=== PATIENT | female | born 1995 | race Caucasian/White ===

== ENCOUNTER 2017-01-01 20:13 | Emergency (ER) | payer OTHER ==
--- NOTE | 2017-01-01 20:51 | ER Document Report ---
ED Medical Screen (RME) - General Stated Complaint: SORE THROAT,EAR PAIN,VOMITING Notes: 21 year old, , 29 weeks gestation. Sick for about 1 week. Started with sore throat, now ears plugged, vomited a couple of times after eating. [place] some baby movement today, seems less. Denies abdominal pain. Denies vaginal bleeding. Physical Exam - General General appearance: Appears well In distress: None - Abdominal Inspection: Gravid female Tenderness: Nontender
--- NOTE | 2017-01-01 22:00 | ER Document Report ---
HPI - HPI Patient complains to provider of: sore throat, sinus congestion Past Medical History - General Information source: Patient - Social History Smoking Status: Never Smoker Frequency of alcohol use: None Drug Abuse: None Lives with: Family Family History: Reviewed & Not Pertinent - Medical History Medical History: Negative Surgical Hx: Negative - Immunizations Immunizations up to date: Yes Hx Diphtheria, Pertussis, Tetanus Vaccination: Yes Vertical Provider Document - CONSTITUTIONAL General Appearance: WD/WN, No Apparent Distress - HEENT HEENT: Atraumatic, Normocephalic. negative: Normal ENT Exam - Sinus congestion and tenderness which is mild in both the frontal and maxillary sinuses, nasal congestion with swollen turbinates but no other abnormality, post nasal drip, pharynx otherwise unremarkable - NECK Neck: Normal Inspection - RESPIRATORY Respiratory: Breath Sounds Normal, No Respiratory Distress - CARDIOVASCULAR Cardiovascular: Regular Rate, Regular Rhythm Course - Re-evaluation Re-evalutation: Chronic bedside ultrasound performed, movement noted, cardiac activity noted at a rate of about 140. Soft and benign abdomen, unremarkable flank exam, patient smiling, alert, well appearing, somewhat congested and sounds hoarse. Postnasal drainage noted, sinus tenderness noted, clear lungs, no tachycardia. After discussion patient will be treated with symptom management and treatment for sinusitis. Low suspicion of any other concerning abnormalities, patient states that she has not vomited in a while and when she did she vomited some mucus. Discussed follow-up, discussed return precautions, patient states understanding and agreement. Discharge - Discharge Clinical Impression: Sinus congestion, Laryngitis Pharyngitis Qualifiers: Pharyngitis/tonsillitis etiology: unspecified etiology Qualified Code(s): J02.9 - Acute pharyngitis, unspecified Condition: Stable Disposition: HOME, SELF-CARE Additional Instructions: Examination shows inflamed pharynx (throat), sinus congestion with postnasal drainage, and slightly tender lymph nodes in your neck. He also had laryngitis (vocal chord inflammation). Use the Flonase as prescribed, take the Benadryl especially at night to help with congestion/postnasal drip. Take the antibiotic as prescribed, recommend waiting 2 days and if symptoms persist you begin this. Take Tylenol for pain. Follow-up with primary care. Return to emergency department for any concerning symptoms. Prescriptions: Amoxicillin Trihydrate [Amoxil 500 mg Capsule] 500 mg PO TID #30 cap Diphenhydramine HCl [Benadryl] 25 mg PO Q6 PRN #20 capsule PRN Reason: Fluticasone Propionate [Flonase Nasal [place] 50 Mcg/Hyampom 16 gm] 1 spray NASL Q12 #1 inhaler
[2017-01-02 05:21] VITALS: BP 112/69
== END 2017-01-01 22:00 | disposition home or self-care (01) ==
LOC: ER 20:13
DX: O26.93 Pregnancy related conditions, unspecified, third trimester (principal); J04.0 Acute laryngitis; J02.9 Acute pharyngitis, unspecified; Z3A.29 29 weeks gestation of pregnancy
CPT/HCPCS: 99282

== ENCOUNTER 2017-02-27 10:40 | Outpatient (CLI) | payer OTHER ==
[2017-02-27 11:20] LABS: APPEARANCE,URINE SLIGHTLY-CLOUDY; BILIRUBIN,URINE NEGATIVE (NEGATIVE); GLUCOSE, URINE NEGATIVE (NEGATIVE); KETONES,URINE NEGATIVE (NEGATIVE); LEUKOCYTE ESTERASE,URINE NEGATIVE (NEGATIVE); NITRITE,URINE NEGATIVE (NEGATIVE); PROTEIN,URINE NEGATIVE (NEGATIVE); URINE SPECIFIC GRAVITY 1.014; UROBILINOGEN,URINE NEGATIVE mg/dL (<2.0)
[2017-02-27 11:45] LABS: URINE BARBITURATES SCREEN NEGATIVE; URINE METHADONE SCREEN NEGATIVE; URINE OPIATES LOW NEGATIVE; URINE PHENCYCLIDINE SCREEN NEGATIVE
== END 2017-02-27 12:26 | disposition home or self-care (01) ==
LOC: LC 10:40
PROVIDERS: ATTEND Specialist
PROC: 4A1HXCZ Monitoring of Products of Conception, Cardiac Rate, External Approach (ICD-10-PCS; principal; 2017-02-27)
DX: O47.1 False labor at or after 37 completed weeks of gestation (principal); Z3A.37 37 weeks gestation of pregnancy
CPT/HCPCS: 59025; 80307; 81005

== ENCOUNTER 2017-03-04 16:12 | Inpatient (IN) | payer OTHER ==
--- NOTE | 2017-03-04 16:26 | Non Stress Test Report ---
Non Stress Test Datetime Report Generated by CPN: 03/04/2017 16:26 DEMOGRAPHIC EGA NST: 37.1 INDICATION Indication for Study: Other Indication for Study (NST) Other: Labor Check MONITORING Monitor Explained: Monitor Explained; Test Explained; Patient Verbalized Understanding Time on Monitor: 02/27/2017 10:55 Time off Monitor: 02/27/2017 12:12 NST Duration: 77 NST INTERVENTIONS NST Interventions: PO Hydration; Reposition Patient Physician Notified NST: Dr. Neilsen BABY A: [id number] BABY A Movement : Present Contraction Frequency : 2-4 FHR Baseline : 130 Accelerations : 15X15 Decelerations : None Variability : Moderate 6-25bpm NST Review: Meets Criteria for Reactive NST NST Review and Verified By : Cintia ESTEVEZT Results: Reactive NST REPORT Report Trigger: Send Report
[2017-03-04 16:59] LABS: APPEARANCE,URINE CLEAR; BILIRUBIN,URINE NEGATIVE (NEGATIVE); GLUCOSE, URINE NEGATIVE (NEGATIVE); KETONES,URINE NEGATIVE (NEGATIVE); LEUKOCYTE ESTERASE,URINE NEGATIVE (NEGATIVE); NITRITE,URINE NEGATIVE (NEGATIVE); PROTEIN,URINE NEGATIVE (NEGATIVE); URINE SPECIFIC GRAVITY 1.005; UROBILINOGEN,URINE NEGATIVE mg/dL (<2.0)
[2017-03-04 17:03] LABS: AMNISURE (ROM) POSITIVE (NEGATIVE)
[2017-03-04 17:15] LABS: URINE BARBITURATES SCREEN NEGATIVE; URINE METHADONE SCREEN NEGATIVE; URINE OPIATES LOW NEGATIVE; URINE PHENCYCLIDINE SCREEN NEGATIVE
[2017-03-04] MEDS ORDERED: RINGERS SOLUTION,LACTATED 1,000 ML IV PRN (17:21)
[2017-03-04] MEDS ORDERED: RINGERS SOLUTION,LACTATED 1,000 ML IV ONE (17:21)
[2017-03-04] MEDS ORDERED: MISOPROSTOL 0.2 MG TABLET ONE (17:37)
[2017-03-04] MEDS ORDERED: LIDOCAINE 1% INJ-PF (10 MG/ML) 30 ML SDV ONE (17:38)
[2017-03-04] MEDS ORDERED: OXYTOCIN/NORMAL SALINE 20 UNIT/1,000 ML RTUINJ ONE (17:38)
[2017-03-04 17:57] LABS: ABSOLUTE LYMPHOCYTES (AUTO) 2.2 10^3/uL (0.5-4.7); ABSOLUTE MONOCYTES (AUTO) 0.8 10^3/uL (0.1-1.4); ABSOLUTE NEUT (AUTO) 4.4 10^3/uL (1.7-8.2); BASOPHILS % (AUTO) 0.1 % (0-2); EOSINOPHILS % (AUTO) 0.4 % (0-6); HEMATOCRIT 33.1 % (36.0-47.0); HEMOGLOBIN 11.1 g/dL (12.0-15.5); HGB HCT DIFFERENCE 0.2; LYMPHOCYTES % (AUTO) 29.9 % (13-45); MEAN CORPUSCULAR HEMOGLOBIN 29.5 pg (27.0-33.4); MEAN CORPUSCULAR HGB CONC 33.5 g/dL (32.0-36.0); MEAN CORPUSCULAR VOLUME 88 fl (80-97); MONOCYTES % (AUTO) 11.2 % (3-13); RED BLOOD COUNT 3.76 10^6/uL (3.72-5.28); RED CELL DISTRIBUTION WIDTH 14.3 % (11.5-14.0); SEGMENTED NEUTROPHILS % (AUTO) 58.4 % (42-78); WHITE BLOOD COUNT 7.5 10^3/uL (4.0-10.5)
[2017-03-04] MEDS ORDERED: DIPH/PERTUSS(ACELL)/TETANUS VAC/PF 0.5 ML SYR (>=10YO) IM PRN (18:15)
[2017-03-04] MEDS ORDERED: PROMETHAZINE HCL 25 MG SUPP.RECT PR PRN (18:15)
[2017-03-04] MEDS ORDERED: DIPHENHYDRAMINE HCL 25 MG CAPSULE PO PRN (18:15)
[2017-03-04] MEDS ORDERED: GLYCERIN/WITCH HAZEL LEAF 1 EACH MED..PAD TP PRN (18:15)
[2017-03-04] MEDS ORDERED: PROMETHAZINE HCL INJ 25 MG/1 ML VIAL IV PRN (18:15)
[2017-03-04] MEDS ORDERED: NA PHOS,M-B/NA PHOS,DI-BA (ADULT) 133 ML ENEMA PR PRN (18:15)
[2017-03-04] MEDS ORDERED: PROMETHAZINE HCL 25 MG TABLET PO PRN (18:15)
[2017-03-04] MEDS ORDERED: ACETAMINOPHEN 650 MG SUPP.RECT PR PRN (18:15)
[2017-03-04] MEDS ORDERED: PSEUDOEPHEDRINE HCL 30 MG TABLET PO PRN (18:15)
[2017-03-04] MEDS ORDERED: MAGNESIUM HYDROXIDE SUSP 30 ML UDCUP PO PRN (18:15)
[2017-03-04] MEDS ORDERED: BENZOCAINE/MENTHOL AEROSOL SPRAY 56 ML TOP PRN (18:15)
[2017-03-04] MEDS ORDERED: DIBUCAINE 1% OINTMENT 28 GM TP PRN (18:15)
[2017-03-04] MEDS ORDERED: MEASLES,MUMPS&RUBELLA VACC/PF 0.5 ML VIAL SUBCUT PRN (18:15)
[2017-03-04] MEDS ORDERED: ZOLPIDEM TARTRATE 5 MG TABLET PO PRN (18:15)
[2017-03-04] MEDS ORDERED: OXYTOCIN/NORMAL SALINE 1,000 ML IV PRN (18:15)
[2017-03-04] MEDS ORDERED: IBUPROFEN 800 MG TABLET ONE (18:34)
--- NOTE | 2017-03-04 20:12 | Admission Physical ---
Datetime Report Generated by CPN: 03/04/2017 20:12 CURRENT ADMISSION Chief Complaint: Uterine Contractions; Suspected Ruptured Membranes Admit Plan: Admit to Unit; Initiate Labor Protocol ALLERGIES Medication Allergies: Yes Medication Allergies: Sulfa (Sulfonamide Antibiotics) (03/04/2017) Medication Allergies: Sulfa (Sulfonamide Antibiotics) (02/27/2017) Latex: No Latex Allergies Food Allergies: none Environmental Allergies: none OBSTETRICAL HISTORY EDC: 03/19/2017 00:00 : 3 Para: 1 Term: 1 : 0 SAB: 1 IAB: 0 Ectopic: 0 Livin Cesareans: 0 VBACs: 0 Multiple Births: 0 Gestational Diabetes: No Rh Sensitization: No Incompetent Cervix: No JOHN: No Infertility: No ART Treatment: No Uterine Anomaly: No IUGR: No Hx Previous C/S: No Macrosomia: No Hx Loss/Stillborn: No PIH: No Hx : No Placenta Previa/Abruption: No Depression/PP Depression: No PTL/PROM: No Post Hemorrhage: No Current Procedures: Ultrasound Obstetrical History Comments: 2014 G2- current SEE RECORDS Alcohol: No Marijuana : No Cocaine: No Other Illicit Drugs: No Cigarettes: Never Smoker. [id number] MEDICAL HISTORY Diabetes: No Blood Transfusion: No Pulmonary Disease (Asthma, TB): No Breast Disease: No Hypertension: No Co Chairman Surgery: No Heart Disease: No Hosp/Surgery: Yes Autoimmune Disorder: No Anesthetic Complications: No Kidney Disease: No Abnormal Pap Smear: No Neuro/Epilepsy: No Psychiatric Disorders: No Other Medical Diseases: Yes Hepatitis/Liver Disease: No Significant Family History: No Varicosities/Phlebitis: No Trauma/Violence : No Thyroid Dysfunction: No Medical History Comments: CHILDBIRTH Scoliosis Surgery 2008- rods in back INFECTIOUS HISTORY Gonorrhea: No Genital Herpes: No Chlamydia: No Tuberculosis: No Syphilis: No Hepatitis: No HIV/AIDS Exposure: No Rash or Viral Illness: No HPV: No PHYSICAL EXAM General: Normal HEENT: Normal Neurologic: Normal Thyroid: Normal Heart: Normal Lungs: Normal Breast: Normal Back: Normal Abdomen: Normal Genitourinary Exam: Normal Extremities: Normal DTRs: Normal Pelvic Type: Adequate Vital Signs: Reviewed MEMBRANES Membranes: Ruptured Amniotic Fluid Color: Clear FETUS A EGA: 37.6 Monitoring: External US FHR- Baseline: 120 Variability: Moderate 6-25bpm Accelerations: 15X15 Decelerations: None FHR Category: Category I Presentation: Vertex Admit Comment: 21 yo presented in active labor EDC 03/19/17 EGA 37.6 NKDA unremarkable care history of back surgery with rods amnisure pos cervical exam term SROM admit pain management prn anticipate poc reviewed with pt and spouse PLANS FOR LABOR AND DELIVERY Labor and Delivery: None Pain Management: None Feeding Preference: Formula Benefit of Breast Feed Discussed: Yes Circumcision: No INFORMED CONSENT Informed Consent Obtained: Vaginal Delivery; Risks, Benefits and Alternatives Discussed Assignment: Becky Gar MD Signature: with User ID: [email or web address] Signature: with User ID: Sandra : with User ID: Sandra : with User ID: [email or web address]
[2017-03-04] MEDS: IBUPROFEN 800 MG TABLET PO SCH (21:10)
[2017-03-04] MEDS: FAMOTIDINE 20 MG TABLET PO SCH (21:19)
[2017-03-05] MEDS: IBUPROFEN 800 MG TABLET PO SCH ×3 (05:55→21:20)
[2017-03-05 07:45] LABS: HEMATOCRIT 31.4 % (36.0-47.0); HEMOGLOBIN 10.4 g/dL (12.0-15.5); HGB HCT DIFFERENCE -0.2; MEAN CORPUSCULAR HEMOGLOBIN 29.3 pg (27.0-33.4); MEAN CORPUSCULAR HGB CONC 33.2 g/dL (32.0-36.0); MEAN CORPUSCULAR VOLUME 88 fl (80-97); RED BLOOD COUNT 3.56 10^6/uL (3.72-5.28); RED CELL DISTRIBUTION WIDTH 14.5 % (11.5-14.0); WHITE BLOOD COUNT 9.2 10^3/uL (4.0-10.5)
--- NOTE | 2017-03-05 08:31 | PDOC PROGRESS REPORT ---
Subjective-OB Subjective: Post Delivery Day: 21 year old. Denies any needs at this time Physical Exam (OB) Vital Signs: Temp Pulse Resp BP Pulse Ox 97.7 F 77 17 103/68 99 03/05/17 07:36 03/05/17 07:36 03/05/17 07:36 03/05/17 07:36 03/05/17 07:36 Intake & Output 03/04/17 03/05/17 03/06/17 06:59 06:59 06:59 Intake Total 750 Balance 750 Weight 73.63 kg - Lochia Lochia Amount: Small 10-25 ml Lochia Color: Rubra/Red - Abdomen Description: Tender, Soft Hernia Present: No Bowel Sounds: Normoactive Flatus Presence: Present Stool: No Fundal Description: Firm, Midline Fundal Height: u/u - u/2 Objective-Diagnostic Laboratory: 03/05/17 07:24 03/04/17 03/04/17 03/04/17 16:23 17:35 17:35 WBC 7.5 RBC 3.76 Hgb 11.1 L Hct 33.1 L MCV 88 MCH 29.5 MCHC 33.5 RDW 14.3 H Plt Count 208 Seg Neutrophils % 58.4 Lymphocytes % 29.9 Monocytes % 11.2 Eosinophils % 0.4 Basophils % 0.1 Absolute Neutrophils 4.4 Absolute Lymphocytes 2.2 Absolute Monocytes 0.8 Absolute Eosinophils 0.0 Absolute Basophils 0.0 Urine Color STRAW Urine Appearance CLEAR Urine pH 8.0 Ur Specific [place] 1.005 Urine Protein NEGATIVE Urine Glucose (UA) NEGATIVE Urine Ketones NEGATIVE Urine Blood NEGATIVE Urine Nitrite NEGATIVE Ur Leukocyte Esterase NEGATIVE Blood Type O POSITIVE Antibody Screen NEGATIVE 03/05/17 07:24 WBC 9.2 RBC 3.56 L Hgb 10.4 L Hct 31.4 L MCV 88 MCH 29.3 MCHC 33.2 RDW 14.5 H Plt Count 201 Seg Neutrophils % Lymphocytes % Monocytes % Eosinophils % Basophils % Absolute Neutrophils Absolute Lymphocytes Absolute Monocytes Absolute Eosinophils Absolute Basophils Urine Color Urine Appearance Urine pH Ur Specific [place] Urine Protein Urine Glucose (UA) Urine Ketones Urine Blood Urine Nitrite Ur Leukocyte Esterase Blood Type Antibody Screen
[2017-03-05] MEDS: FERROUS SULFATE 325 MG TABLET PO SCH ×2 (09:41→17:49)
[2017-03-05] MEDS: FAMOTIDINE 20 MG TABLET PO SCH ×2 (09:42→21:20)
[2017-03-05] MEDS: SENNOSIDES/DOCUSATE 8.6-50 MG 1 EACH TABLET PO SCH (09:42)
[2017-03-05] MEDS: DOCUSATE SODIUM 100 MG CAPSULE PO SCH ×2 (09:42→17:50)
[2017-03-05] MEDS ORDERED: [UNRECOGNIZED DRUG - OTHER] PO SCH (10:00)
[2017-03-05] MEDS ORDERED: DHA PO SCH (10:00)
[2017-03-05] MEDS ORDERED: OMEGA3 PO SCH (10:00)
[2017-03-05] MEDS ORDERED: FISH OIL PO SCH (10:00)
[2017-03-05] MEDS ORDERED: PRENATAL VITAMIN W-O CA NO5/FE FUMARATE/FA CAPSULE PO SCH (10:00)
[2017-03-06] MEDS: IBUPROFEN 800 MG TABLET PO SCH (05:56)
[2017-03-06 08:24] VITALS: BP 104/56
[2017-03-06] MEDS: FAMOTIDINE 20 MG TABLET PO SCH (09:16)
[2017-03-06] MEDS: DOCUSATE SODIUM 100 MG CAPSULE PO SCH (09:16)
[2017-03-06] MEDS: FERROUS SULFATE 325 MG TABLET PO SCH (09:16)
[2017-03-06] MEDS: SENNOSIDES/DOCUSATE 8.6-50 MG 1 EACH TABLET PO SCH (09:16)
--- NOTE | 2017-03-06 09:26 | PDOC PROGRESS REPORT ---
Subjective-OB Subjective: Post Delivery Day: 21 year old. Denies any needs at this time. Ready to go home. Physical Exam (OB) Vital Signs: Temp Pulse Resp BP Pulse Ox 97.7 F 76 17 104/56 L 99 03/06/17 08:00 03/06/17 08:00 03/06/17 08:00 03/06/17 08:00 03/06/17 08:00 Intake & Output 03/05/17 03/06/17 03/07/17 06:59 06:59 06:59 Intake Total 750 480 Balance 750 480 Weight 73.63 kg - Lochia Lochia Amount: Scant < 10 ml Lochia Color: Rubra/Red - Abdomen Description: Tender, Soft Hernia Present: No Bowel Sounds: Normoactive Flatus Presence: Present Stool: No Fundal Description: Firm, Midline Fundal Height: u/u - u/2 Objective-Diagnostic Laboratory: 03/05/17 07:24
--- NOTE | 2017-03-06 09:32 | PDOC DISCHARGE SUMMARY ---
Final Diagnosis Discharge Date: 03/06/17 Discharge Data - Discharge Medication Home Medications: Eif826/FA/Omega3/Dha/Fish Oil [ Gummies] 1 each PO DAILY 03/04/17 Docusate Sodium [Colace 100 mg Capsule] 100 mg PO BID #30 capsule 03/06/17 Ferrous Sulfate [Feosol 325 mg Tablet] 325 mg PO BID #60 tablet 03/06/17 Gestational Age: 37.6 wks Reason(s) for Admission: Onset of Labor Procedures: Ultrasound Intrapartum Procedure(s): Spontaneous Vaginal Delivery Complication(s): Laceration-Labial - Data Baby 1 Male at 1 minute: 7 at 5 minutes: 8 Weight: 3.629 kg Home with Mother: Yes Complications: No - Diagnosis Test Laboratory: Temp Pulse Resp BP Pulse Ox 97.7 F 76 17 104/56 L 99 03/06/17 08:00 03/06/17 08:00 03/06/17 08:00 03/06/17 08:00 03/06/17 08:00 03/04/17 03/04/17 03/05/17 16:23 17:35 07:24 RBC 3.76 3.56 L Hgb 11.1 L 10.4 L Hct 33.1 L 31.4 L Urine Opiates Screen NEGATIVE - Discharge information/Instructions Discharge Activity: Activity As Tolerated, Balance Activity w/Rest, Slowly Increase Activity, No tub bath Discharge Diet: Regular Disposition: HOME, SELF-CARE Follow up with: [facility] in: 4, Weeks
--- NOTE | 2017-03-09 10:08 | Delivery Summary ---
Del Sum A-C Datetime Report Generated by CPN: 03/09/2017 10:08 DELIVERY PERSONNEL DELIVERY PERSONNEL: [phone] DELIVERY PERSONNEL: [phone] Delivery Doctor:: Nick Spani CNM Labor and Delivery Nurse:: albert carrington RNlathe sander Nurse:: Kandi Villarreal RN Nursery Nurse:: Ryann Jensen RN Nursery Nurse:: Alia AIKEN RN Flow Worker/GAS ENGINE OPERATOR COMPRESSORS: Cintia Maier, APPAREL FASHION DESIGNER MATERNAL INFORMATION Delivery Anesthesia: None Medications After Delivery: Pitocin Drip 20 Units/1000ml NSS Maternal Complications: Precipitous Labor (<3hrs) Provider Comments: pt with increased urge to push bed prepared for delivery delivery of viable male apgars 7/8 nursery nurses at bedside bulb suctioned on perineum infant to abdomen cord clamped x2 and cut by fob cord blood obtained placenta intact 3vc right labial superficial tear not repaired uterus firm EBL 250cc hemostasis achieved LABOR SUMMARY EDC: 03/19/2017 00:00 No. Babies in Womb: 1 Attempted: No Labor Anesthesia: None LABOR INFORMATION Complete Dilatation: 03/04/2017 17:51 Oxytocin: N/A Group B Beta Strep: negative Antibiotics # of Doses: 0 Steroids Given: None Reason Steroids Not Administered: Not Applicable MEMBRANES Membranes Rupture Method: Spontaneous Rupture of Membranes: 03/04/2017 15:30 Length of Rupture (hr): 2.42 Amniotic Fluid Color: Clear Amniotic Fluid Amount: Small Amniotic Fluid Odor: Normal STAGES OF LABOR Stage 2 hr: 0 Stage 2 min: 4 Stage 3 hr: 0 Stage 3 min: 3 VAGINAL DELIVERY Episiotomy: None Laceration Repair: No Laceration Repair Note: right labial small superficial tear not repaired Sponge Count Correct: N/A Sharps Count Correct: N/A BABY A INFORMATION Infant Delivery Date/Time: 03/04/2017 17:55 Method of Delivery: Vaginal Born in Route : No : N/A Forceps: N/A Vacuum Extraction: N/A Shoulder Dystocia : No PRESENTATION/POSITION BABY A Presentation: Cephalic Cephalic Presentation: Vertex Vertex Position: Left Occipital Anterior Breech Presentation: N/A PLACENTA INFORMATION BABY A Placenta Delivery Time : 03/04/2017 17:58 Placenta Method of Delivery: Spontaneous Placenta Status: Delivered SCORES BABY A Heart Rate 1 min: >100 bpm Resp Effort 1 min: Slow, Irregular Reflex Irritability 1 min: Cough or Sneeze or Pulls Away Muscle Tone 1 min: Active Motion Color 1 min: Blue/Pale Resuscitation Effort 1 min: Tactile Stimulation; PPV/NCPAP SCORE 1 MIN: 7 Heart Rate 5 min: >100 bpm Resp Effort 5 min: Slow, Irregular Reflex Irritability 5 min: Cough or Sneeze or Pulls Away Muscle Tone 5 min: Active Motion Color 5 min: Body [place], Extremities Blue Resuscitation Effort 5 min: Tactile Stimulation; PPV/NCPAP SCORE 5 MIN: 8 INFORMATION BABY A Gestational Age at Delivery: 37.6 Gestational Status: Early Term- 37- 38.6 Weeks Outcome : Liveborn Infant Condition : Stable Sex: Male IDENTIFICATION BABY A Infant Verification Date/Time: 03/04/2017 18:21 ID Band Number: [id number] Mother's Name Verified: Yes RN Verifying Infant: BETO VILLARREAL LYNN Additional Verifying Personnel: Sangeeta CARRANZA, /GAS ENGINE OPERATOR COMPRESSORS WEIGHT/LENGTH BABY A Birthweight (gm): 3620 Infant Weight (lb): 8 Infant Weight (oz): 0 Infant Length (in): 19.50 Length (cm): 49.53 CORD INFORMATION BABY A No. Cord Vessels: 3 Nuchal Cord : N/A Cord Blood Taken: Yes-For Eval (Mom's Blood Type - or O+) Suction: None ASSESSMENT BABY A Infant Complications: None Physical Findings at Delivery: Within Normal Limits Respirations: Nasal Flaring Skin to Skin: No Skin to Skin Time (min): pt declined Linen Room Worker/ALS Called : No Care By: Alia AIKEN RN Transferred To: [facility] BABY B INFORMATION : N/A SIGNATURES Assignment: Becky Gar MD Signature: with User ID: [email or web address] : with User ID: [email or web address]
== END 2017-03-06 13:06 | disposition home or self-care (01) | DRG 775 ==
LOC: LC 16:12 → LR 17:32 → 2S 20:05
PROVIDERS: ADMIT Obstetrics & Gynecology; ATTEND Obstetrics & Gynecology
PROC: 10E0XZZ Delivery of Products of Conception, External Approach (ICD-10-PCS; principal; 2017-03-04)
DX: O62.3 Precipitate labor (principal); O70.0 First degree perineal laceration during delivery; Z3A.37 37 weeks gestation of pregnancy; Z37.0 Single live birth
CPT/HCPCS: 36415; 80307; 81005; 84112; 85025; 85027; 86592; 86850; 86900; 86901; J2590; J3490

== ENCOUNTER 2018-10-20 17:22 | Emergency (ER) | payer OTHER ==
--- NOTE | 2018-10-20 17:38 | ER Document Report ---
ED General - General Chief Complaint: Vaginal Bleeding Stated Complaint: SPOTTING WITH Time Seen by Provider: 10/20/18 17:32 Primary Care Provider: [facility] [Provider Group] - Follow up as needed RUBI DEUTSCH MD [ACTIVE STAFF] - Follow up as needed Notes: Patient is a 23-year-old female, , approximately 6 weeks gravid that presents to the emergency department for chief complaint of vaginal spotting. Patient states she first noticed this this morning, she had some mild cramping, did not notice any clots, she is had some nausea without vomiting. She reports the first day of last menstrual period was 09/06/2018. She denies noting any urinary frequency, dysuria, hematuria, or vaginal discharge or discomfort. She currently denies any pain. Denies any recent fevers, chills, night sweats, cough, shortness of breath, difficulty breathing, abdominal pain, or diarrhea. States she does have a history of 1 miscarriage. Past Medical History: Denies chronic medical conditions Past Surgical History: Denies surgical history Social History: Denies tobacco, alcohol or drug use. Family History: Reviewed and noncontributory for presenting illness Allergies: Reviewed, see documented allergy list. REVIEW OF SYSTEMS: Other than noted above, the 12 point review of systems was reviewed with the patient and were negative, all pertinent findings are included in the HPI. PHYSICAL EXAMINATION: Vital signs reviewed, nursing noted reviewed. GENERAL: Well-appearing, well-nourished and in no acute distress. HEAD: Atraumatic, normocephalic. EYES: Eyes appear normal, extraocular movements intact, sclera anicteric, conjunctiva are normal. ENT: nares patent, oropharynx clear without exudates. Moist mucous membranes. NECK: Normal range of motion, supple without lymphadenopathy LUNGS: Breath sounds clear to auscultation bilaterally and equal. No wheezes rales or rhonchi. HEART: Regular rate and rhythm without murmurs ABDOMEN: Soft, nontender, normoactive bowel sounds. No rebound, guarding, or rigidity. No masses appreciated. EXTREMITIES: Nontender, good range of motion, no pitting or edema. NEUROLOGICAL: No focal neurological deficits. Moves all extremities s pontaneously Motor and sensory grossly intact on exam. PSYCH: Normal mood, normal affect. SKIN: Warm, Dry, normal turgor, no rashes or lesions noted on exposed skin TRAVEL OUTSIDE OF THE [place] IN LAST 30 DAYS: No - Related Data Allergies/Adverse Reactions: Sulfa (Sulfonamide Antibiotics) Allergy (Verified 03/04/17 16:59) Past Medical History - General Last Menstrual Period: 09/06/2018 - Social History Smoking Status: Unknown if Ever Smoked Family History: Reviewed & Not Pertinent Patient has suicidal ideation: No Patient has homicidal ideation: No Renal/ Medical History: Denies: Hx Peritoneal Dialysis - Immunizations Immunizations up to date: Yes Hx Diphtheria, Pertussis, Tetanus Vaccination: Yes Physical Exam - Vital signs Vitals: Temp Pulse Resp BP Pulse Ox 98.7 F 74 14 124/57 L 100 10/20/18 17:27 10/20/18 17:27 10/20/18 17:27 10/20/18 17:27 10/20/18 17:27 Course - Re-evaluation Re-evalutation: Patient seen and examined vital signs reviewed. Laboratory data and imaging were ordered as appropriate for the patient's presenting symptoms and complaint, with consideration of any critical or life threatening conditions that may be associated with their obtained history and exam as noted above. Results were reviewed when available and demonstrated single live intrauterine , visualized on ultrasound, patient was O+, her urine testing was positive for leukocyte esterase, and white blood cells, is also blood, likely contaminant, however given patient's had frequency, will treat with Keflex for 5 days The patient was re-evaluated and was stable Evaluation was most consistent with vaginal bleeding early , UTI, advised to follow-up with ASPNET DEVELOPER Results were discussed with the patient at this point, after careful consideration I feel that that patient can be discharged from the emergency department, the patient was educated treatments and reasons to return to the emergency department based on their presumed diagnosis as noted above, they were advised to followup with a primary care physician in 2-3 days. Patient was agreeable to plan of care. *Note is created using voice recognition software and may contain spelling, syntax or grammatical errors. Laboratory 10/20/18 10/20/18 10/20/18 18:40 18:40 18:40 Beta HCG, Quant 45580.00 H Total Beta HCG POSITIVE Urine Color YELLOW Urine Appearance SLIGHTLY-CLOUDY Urine pH 6.0 Ur Specific [place] 1.008 Urine Protein NEGATIVE Urine Glucose (UA) NEGATIVE Urine Ketones NEGATIVE Urine Blood LARGE H Urine Nitrite NEGATIVE Urine Bilirubin NEGATIVE Urine Urobilinogen NEGATIVE Ur Leukocyte Esterase LARGE H Urine WBC (Auto) 105 Urine RBC (Auto) 149 Urine Ascorbic Acid NEGATIVE Blood Type O POSITIVE Rhogam Indicated RHOGAM NOT INDICATED Obstetrics Ultrasound 10/20/18 17:37 IMPRESSION: LIVING INTRAUTERINE . EGA 6 weeks 0 days. Trimester of : First - 0 to 13 weeks. - Vital Signs Vital signs: Temp Pulse Resp BP Pulse Ox 98.7 F 89 16 120/61 100 10/20/18 20:02 10/20/18 20:02 10/20/18 20:02 10/20/18 20:02 10/20/18 20:02 - Laboratory Laboratory results interpreted by me: 10/20/18 10/20/18 18:40 18:40 Beta HCG, Quant 08578.00 H Urine Blood LARGE H Ur Leukocyte Esterase LARGE H Discharge - Discharge Clinical Impression: Vaginal bleeding during UTI (urinary tract infection) Qualifiers: Urinary tract infection type: site unspecified Hematuria presence: with hematuria Qualified Code(s): N39.0 - Urinary tract infection, site not specified Condition: Stable Disposition: HOME, SELF-CARE Instructions: Bleeding During Early ([facility]), Urinary Tract Infection ([facility]) Prescriptions: RX: Cephalexin Monohydrate [Keflex 500 mg Capsule] 500 mg PO BID 5 Days #10 capsule Referrals: RUBI DEUTSCH MD [ACTIVE STAFF] - Follow up as needed [facility] [Provider Group] - Follow up as needed
[2018-10-20 19:04] LABS: APPEARANCE,URINE SLIGHTLY-CLOUDY; BILIRUBIN,URINE NEGATIVE (NEGATIVE); COLOR,URINE YELLOW; GLUCOSE, URINE NEGATIVE (NEGATIVE); KETONES,URINE NEGATIVE (NEGATIVE); LEUKOCYTE ESTERASE,URINE LARGE (NEGATIVE); NITRITE,URINE NEGATIVE (NEGATIVE); PROTEIN,URINE NEGATIVE (NEGATIVE); URINE SPECIFIC GRAVITY 1.008; UROBILINOGEN,URINE NEGATIVE mg/dL (<2.0)
--- NOTE | 2018-10-20 19:41 | RADIOLOGY REPORT (SQ) ---
EXAM DESCRIPTION: U/S OB TRANSVAGINAL W/O DOP COMPLETED DATE/TIME: 10/20/2018 7:29 pm REASON FOR STUDY: 6wks, vaginal bleeding COMPARISON: None. TECHNIQUE: Transvaginal static and realtime grayscale images acquired of the pelvis. Additional miles cted spectral and color Doppler images recorded. All images stored on PACs. bHCG: Pending CLINICAL DATES: LMP 09/06/2018. 6 weeks 2 days. LIMITATIONS: None. FINDINGS: FETUS: Single Living intrauterine . ULTRASOUND EGA: 6 weeks 0 days. ULTRASOUND KIM: 06/15/2019 EFW: Not applicable less than 20 weeks. CRL: 0.36 cm FHR: 104 beats per minute. SURVEY: Too early to assess. AMNIOTIC FLUID: Adequate amount. PLACENTA: Not yet developed due to early gestation. SUBCHORIONIC BLEED: No SIZE OF BLEED: Not applicable. UTERUS: No masses. No anomalies. CERVICAL LENGTH: 3.1 cm. Closed. RIGHT ADNEXA: Normal ovary with normal vascular flow. 3.5 x 2.4 x 2.2 cm. No adnexal free fluid. No adnexal masses. LEFT ADNEXA: Normal ovary with normal vascular flow. 2.9 x 1.4 x 1.6 cm. No adnexal free fluid. No adnexal masses. FREE FLUID: None. OTHER: No other significant finding. IMPRESSION: LIVING INTRAUTERINE . EGA 6 weeks 0 days. Trimester of : First - 0 to 13 weeks. TECHNICAL DOCUMENTATION: JOB ID: [id number] [employer]- All Rights Reserved Reading location - IP/workstation name: [email or web address]
[2018-10-20 20:06] VITALS: BP 120/61
== END 2018-10-20 20:03 | disposition home or self-care (01) ==
LOC: ER 17:22
DX: O23.41 Unspecified infection of urinary tract in pregnancy, first trimester (principal); O46.91 Antepartum hemorrhage, unspecified, first trimester; O26.891 Other specified pregnancy related conditions, first trimester; R11.0 Nausea; Z3A.01 Less than 8 weeks gestation of pregnancy
CPT/HCPCS: 36415; 76817; 81001; 84702; 86900; 86901; 87086; 87088; 87186; 99284

== ENCOUNTER → 2019-06-05 | Outpatient (CLI) | payer OTHER ==
[2019-06-05 15:56] LABS: APPEARANCE,URINE SLIGHTLY-CLOUDY; BILIRUBIN,URINE NEGATIVE (NEGATIVE); COLOR,URINE YELLOW; GLUCOSE, URINE NEGATIVE (NEGATIVE); KETONES,URINE NEGATIVE (NEGATIVE); LEUKOCYTE ESTERASE,URINE MODERATE (NEGATIVE); NITRITE,URINE NEGATIVE (NEGATIVE); PROTEIN,URINE NEGATIVE (NEGATIVE); UROBILINOGEN,URINE NEGATIVE mg/dL (<2.0)
[2019-06-05 16:20] LABS: URINE AMPHETAMINES SCREEN NEGATIVE; URINE BARBITURATES SCREEN NEGATIVE; URINE BENZODIAZEPINES SCREEN NEGATIVE; URINE COCAINE SCREEN NEGATIVE; URINE MARIJUANA (THC) SCREEN NEGATIVE; URINE METHADONE SCREEN NEGATIVE; URINE PHENCYCLIDINE SCREEN NEGATIVE
== END ==
LOC: LC 15:34
PROVIDERS: ATTEND Obstetrics & Gynecology
PROC: 4A1HXCZ Monitoring of Products of Conception, Cardiac Rate, External Approach (ICD-10-PCS; principal; 2019-06-05)
DX: O36.8130 Decreased fetal movements, third trimester, not applicable or unspecified (principal); Z3A.49 Greater than 42 weeks gestation of pregnancy
CPT/HCPCS: 59025; 80307; 81005

== ENCOUNTER 2019-06-16 10:10 | Outpatient (CLI) | payer OTHER | END 2019-06-16 10:47 | disposition home or self-care (01) | LOC: LC 10:10 | PROVIDERS: ATTEND Obstetrics & Gynecology | PROC: 4A1HXCZ Monitoring of Products of Conception, Cardiac Rate, External Approach (ICD-10-PCS; principal; 2019-06-16) | DX: Z36.89 Encounter for other specified antenatal screening (principal) | CPT/HCPCS: 84112 ==

== ENCOUNTER 2019-06-17 13:29 | Outpatient (CLI) | payer OTHER ==
[2019-06-17 14:13] LABS: APPEARANCE,URINE CLEAR; BILIRUBIN,URINE NEGATIVE (NEGATIVE); COLOR,URINE COLORLESS; GLUCOSE, URINE NEGATIVE (NEGATIVE); KETONES,URINE NEGATIVE (NEGATIVE); LEUKOCYTE ESTERASE,URINE NEGATIVE (NEGATIVE); NITRITE,URINE NEGATIVE (NEGATIVE); PROTEIN,URINE NEGATIVE (NEGATIVE); URINE SPECIFIC GRAVITY 1.003; UROBILINOGEN,URINE NEGATIVE mg/dL (<2.0)
[2019-06-17 14:29] LABS: URINE AMPHETAMINES SCREEN NEGATIVE; URINE BARBITURATES SCREEN NEGATIVE; URINE BENZODIAZEPINES SCREEN NEGATIVE; URINE COCAINE SCREEN NEGATIVE; URINE MARIJUANA (THC) SCREEN NEGATIVE; URINE METHADONE SCREEN NEGATIVE; URINE PHENCYCLIDINE SCREEN NEGATIVE
--- NOTE | 2019-06-17 14:40 | Non Stress Test Report ---
Non Stress Test Datetime Report Generated by CPN: 06/17/2019 14:40 DEMOGRAPHIC EGA NST: 40.4 EGA NST: 40.0 INDICATION Indication for Study: Decreased Movement Indication for Study: Ordered by Provider MONITORING Monitor Explained: Monitor Explained; Test Explained; Patient Verbalized Understanding Monitor Explained: Monitor Explained; Test Explained; Patient Verbalized Understanding Time on Monitor: 06/17/2019 13:40 Time on Monitor: 06/13/2019 18:02 Time off Monitor: 06/17/2019 14:01 NST Duration: 21 NST INTERVENTIONS NST Interventions: PO Hydration NST Interventions: None Physician Notified NST: Dr Mcmillan Physician Notified NST: Dr. Younger BABY A: [id number] BABY A Movement : Present Movement : Present Contraction Frequency : irregular FHR Baseline : 120 FHR Baseline : 120 Accelerations : 15X15 Accelerations : 15X15 Decelerations : None Variability : Moderate 6-25bpm Variability : Moderate 6-25bpm NST Review: Meets Criteria for Reactive NST NST Review: Meets Criteria for Reactive NST NST Review and Verified By : Marcos Blankenship RN NST Review and Verified By : Saray Solomon NST Results: Reactive NST Results: Reactive NST REPORT Report Trigger: Send Report
== END 2019-06-17 14:39 | disposition home or self-care (01) ==
LOC: LC 13:29
PROVIDERS: ATTEND Obstetrics & Gynecology
PROC: 4A1HXCZ Monitoring of Products of Conception, Cardiac Rate, External Approach (ICD-10-PCS; principal; 2019-06-17)
DX: O36.8130 Decreased fetal movements, third trimester, not applicable or unspecified (principal); O48.0 Post-term pregnancy; Z3A.40 40 weeks gestation of pregnancy
CPT/HCPCS: 59025; 80307; 81005

== ENCOUNTER 2019-06-19 09:55 | Inpatient (IN) | payer OTHER ==
[2019-06-19] MEDS ORDERED: LIDOCAINE 1% INJ-PF (10 MG/ML) 30 ML SDV ONE (10:37)
[2019-06-19] MEDS ORDERED: MISOPROSTOL 0.2 MG TABLET ONE (10:37)
[2019-06-19] MEDS ORDERED: OXYTOCIN/NORMAL SALINE 20 UNIT/1,000 ML RTUINJ ONE (10:37)
[2019-06-19] MEDS ORDERED: OXYTOCIN 10 UNIT/ML VIAL ONE (10:37)
--- NOTE | 2019-06-19 11:11 | Admission Physical ---
Datetime Report Generated by CPN: 06/19/2019 11:11 CURRENT ADMISSION Chief Complaint: Scheduled Induction of Labor Indication for Induction: Postterm Admit Impression : Term, Intrauterine Admit Plan: Admit to Unit; Initiate Labor Protocol; Initiate Labor Augmentation Protocol ALLERGIES Medication Allergies: Yes Medication Allergies: Sulfa (Sulfonamide Antibiotics) (06/19/2019) Latex: No Latex Allergies Food Allergies: None Environmental Allergies: None OBSTETRICAL HISTORY EDC: 06/13/2019 00:00 : 4 Para: 2 Term: 2 : 0 SAB: 0 IAB: 0 Ectopic: 0 Livin Cesareans: 0 VBACs: 0 Multiple Births: 0 Gestational Diabetes: No Rh Sensitization: No Incompetent Cervix: No JOHN: No Infertility: No ART Treatment: No Uterine Anomaly: No IUGR: No Hx Previous C/S: No Macrosomia: No Hx Loss/Stillborn: No PIH: No Hx : No Placenta Previa/Abruption: No Depression/PP Depression: No PTL/PROM: No Post Hemorrhage: No Current Procedures: Ultrasound; NST Obstetrical History Comments: G1: 2014 -38 weeks, vaginal G2: 2015 SAB G3: 2016 -38 weeks, vaginal G4: current SEE RECORDS Alcohol: No Marijuana : No Cocaine: No Other Illicit Drugs: No Cigarettes: Never Smoker. [id number] MEDICAL HISTORY Diabetes: No Blood Transfusion: No Pulmonary Disease (Asthma, TB): No Breast Disease: No Hypertension: No Commercial Loan Underwriter Surgery: No Heart Disease: No Hosp/Surgery: Yes Autoimmune Disorder: No Anesthetic Complications: No Kidney Disease: No Abnormal Pap Smear: No Neuro/Epilepsy: No Psychiatric Disorders: No Other Medical Diseases: No Hepatitis/Liver Disease: No Significant Family History: No Varicosities/Phlebitis: No Trauma/Violence : No Thyroid Dysfunction: No Medical History Comments: 2008: scoliosis surgery, shantel and pins placed INFECTIOUS HISTORY Gonorrhea: No Genital Herpes: No Chlamydia: No Tuberculosis: No Syphilis: No Hepatitis: No HIV/AIDS Exposure: No Rash or Viral Illness: No HPV: No PHYSICAL EXAM General: Normal HEENT: Normal Neurologic: Normal Thyroid: Normal Heart: Normal Lungs: Normal Breast: Normal Back: Normal Abdomen: Normal Genitourinary Exam: Normal Extremities: Normal DTRs: Normal Pelvic Type: Adequate Vital Signs: Reviewed; Within Normal Limits VAGINAL EXAM Dilatation: 5 Effacement: 75 Station: -2 Contraction Comments: Q 4 min FETUS A EGA: 40.6 Monitoring: External US FHR- Baseline: 125 Variability: Moderate 6-25bpm Accelerations: 15X15 FHR Category: Category I Presentation: Vertex Admit Comment: Admit for IOL -AROM'd clear -Ctx Q 3 min GBS negative -Hx prior x2, anticipate PLANS FOR LABOR AND DELIVERY Labor and Delivery: None Pain Management: None Feeding Preference: Formula Benefit of Breast Feed Discussed: Yes Circumcision: Yes INFORMED CONSENT Informed Consent Obtained: Vaginal Delivery; Risks, Benefits and Alternatives Discussed Signature: with User ID: Michelle : with User ID: Michelle
[2019-06-19] MEDS ORDERED: BENZOCAINE/MENTHOL AEROSOL SPRAY 56 ML TOP PRN (12:10)
[2019-06-19] MEDS ORDERED: MAGNESIUM HYDROXIDE SUSP 30 ML UDCUP PO PRN (12:10)
[2019-06-19] MEDS ORDERED: PSEUDOEPHEDRINE HCL 30 MG TABLET PO PRN (12:10)
[2019-06-19] MEDS ORDERED: DIBUCAINE 1% OINTMENT 56 GM TP PRN (12:10)
[2019-06-19] MEDS ORDERED: DIPH/PERTUSS(ACELL)/TETANUS VAC/PF 0.5 ML SYR (>=10YO) IM PRN (12:10)
[2019-06-19] MEDS ORDERED: RINGERS SOLUTION,LACTATED 1,000 ML IV ONE (12:10)
[2019-06-19] MEDS ORDERED: NA PHOS,M-B/NA PHOS,DI-BA (ADULT) 133 ML ENEMA PR PRN (12:10)
[2019-06-19] MEDS ORDERED: PROMETHAZINE HCL 25 MG SUPP.RECT PR PRN (12:10)
[2019-06-19] MEDS ORDERED: GLYCERIN/WITCH HAZEL LEAF 1 EACH MED..WIPE TP PRN (12:10)
[2019-06-19] MEDS ORDERED: MEASLES,MUMPS&RUBELLA VACC/PF 0.5 ML VIAL SUBCUT PRN (12:10)
[2019-06-19] MEDS ORDERED: DIPHENHYDRAMINE HCL 25 MG CAPSULE PO PRN (12:10)
[2019-06-19] MEDS ORDERED: ACETAMINOPHEN WITH CODEINE #3 TABLET PO PRN ×2 (12:10)
[2019-06-19] MEDS ORDERED: ACETAMINOPHEN 650 MG SUPP.RECT PR PRN (12:10)
[2019-06-19] MEDS ORDERED: PROMETHAZINE HCL 25 MG TABLET PO PRN (12:10)
[2019-06-19] MEDS ORDERED: OXYTOCIN/NORMAL SALINE 20 UNIT/1,000 ML RTUINJ IV PRN (12:10)
[2019-06-19] MEDS ORDERED: PROMETHAZINE HCL INJ 25 MG/1 ML VIAL IV PRN (12:10)
[2019-06-19] MEDS ORDERED: BENZOCAINE/MENTHOL AEROSOL SPRAY 56 ML ONE (12:15)
[2019-06-19] MEDS ORDERED: IBUPROFEN 800 MG TABLET ONE (12:15)
[2019-06-19 12:54] LABS: ABSOLUTE LYMPHOCYTES (AUTO) 1.5 10^3/uL (0.5-4.7); ABSOLUTE MONOCYTES (AUTO) 0.6 10^3/uL (0.1-1.4); ABSOLUTE NEUT (AUTO) 4.3 10^3/uL (1.7-8.2); BASOPHILS % (AUTO) 0.2 % (0-2); EOSINOPHILS % (AUTO) 0.3 % (0-6); HEMATOCRIT 31.8 % (36.0-47.0); HEMOGLOBIN 10.6 g/dL (12.0-15.5); LYMPHOCYTES % (AUTO) 23.7 % (13-45); MEAN CORPUSCULAR HEMOGLOBIN 27.9 pg (27.0-33.4); MEAN CORPUSCULAR HGB CONC 33.5 g/dL (32.0-36.0); MEAN CORPUSCULAR VOLUME 84 fl (80-97); MONOCYTES % (AUTO) 9.7 % (3-13); PLATELET COUNT 176 10^3/uL (150-450); RED CELL DISTRIBUTION WIDTH 16.2 % (11.5-14.0); SEGMENTED NEUTROPHILS % (AUTO) 66.1 % (42-78); TOTAL CELLS COUNTED % (AUTO) 100 %; WHITE BLOOD COUNT 6.5 10^3/uL (4.0-10.5)
[2019-06-19 13:04] LABS: URINE AMPHETAMINES SCREEN NEGATIVE; URINE BARBITURATES SCREEN NEGATIVE; URINE BENZODIAZEPINES SCREEN NEGATIVE; URINE COCAINE SCREEN NEGATIVE; URINE MARIJUANA (THC) SCREEN NEGATIVE; URINE METHADONE SCREEN NEGATIVE; URINE PHENCYCLIDINE SCREEN NEGATIVE
[2019-06-19] MEDS: FERROUS SULFATE 325 MG TABLET PO SCH (17:44)
[2019-06-19] MEDS: DOCUSATE SODIUM 100 MG CAPSULE PO SCH (17:44)
[2019-06-19] MEDS: IBUPROFEN 800 MG TABLET PO SCH (22:46)
[2019-06-19] MEDS: FAMOTIDINE 20 MG TABLET PO SCH (22:46)
[2019-06-20] MEDS: IBUPROFEN 800 MG TABLET PO SCH ×3 (05:33→21:11)
[2019-06-20 08:20] LABS: HEMOGLOBIN 10.7 g/dL (12.0-15.5); MEAN CORPUSCULAR HGB CONC 33.4 g/dL (32.0-36.0); MEAN CORPUSCULAR VOLUME 84 fl (80-97); PLATELET COUNT 195 10^3/uL (150-450); RED BLOOD COUNT 3.82 10^6/uL (3.72-5.28); RED CELL DISTRIBUTION WIDTH 16.1 % (11.5-14.0); WHITE BLOOD COUNT 8.8 10^3/uL (4.0-10.5)
[2019-06-20] MEDS: DOCUSATE SODIUM 100 MG CAPSULE PO SCH ×2 (09:43→17:30)
[2019-06-20] MEDS: SENNOSIDES/DOCUSATE 8.6-50 MG 1 EACH TABLET PO SCH (09:43)
[2019-06-20] MEDS: PRENATAL VITAMIN W DHA CAPSULE PO SCH (09:43)
[2019-06-20] MEDS: FAMOTIDINE 20 MG TABLET PO SCH ×2 (09:43→21:11)
[2019-06-20] MEDS: FERROUS SULFATE 325 MG TABLET PO SCH ×2 (09:43→17:30)
--- NOTE | 2019-06-20 11:31 | PDOC PROGRESS REPORT ---
Subjective-OB Progress Note for:: 06/20/19 Subjective: reports bleeding slowing, pain controlled with current meds. denies needs. Physical Exam (OB) Vital Signs: Temp Pulse Resp BP Pulse Ox 97.8 F 73 18 110/64 97 06/20/19 07:58 06/20/19 07:58 06/20/19 07:58 06/20/19 07:58 06/20/19 07:58 Intake & Output 06/19/19 06/20/19 06/21/19 06:59 06:59 06:59 Intake Total 450 Balance 450 Weight 76.3 kg - Abdomen Description: Soft Hernia Present: No Fundal Description: Firm, Midline Fundal Height: u/u - u/2 - Abdominal Distension: No distension Tenderness: Nontender - Extremities Lower extremities: Cindy's sign - neg Calf: Normal, Nontender Objective-Diagnostic Laboratory: 06/20/19 07:24 06/19/19 06/19/19 06/20/19 12:37 12:37 07:24 WBC 6.5 8.8 RBC 3.80 3.82 Hgb 10.6 L 10.7 L Hct 31.8 L 32.0 L MCV 84 84 MCH 27.9 28.0 MCHC 33.5 33.4 RDW 16.2 H 16.1 H Plt Count 176 195 Seg Neutrophils % 66.1 Blood Type O POSITIVE Antibody Screen NEGATIVE Assessment and Plan(PN) - Assessment and Plan (1) Encounter for induction of labor Is this a current diagnosis for this admission?: Yes (2) Delivery normal Is this a current diagnosis for this admission?: Yes (3) Is this a current diagnosis for this admission?: Yes - Time Spent with Patient Time with patient: Less than 15 minutes Medications reviewed and adjusted accordingly: Yes - Disposition Anticipated Discharge: Home Within: within 24 hours
[2019-06-21] MEDS: IBUPROFEN 800 MG TABLET PO SCH (05:48)
--- NOTE | 2019-06-21 09:42 | PDOC DISCHARGE SUMMARY ---
Impression - Admit/DC Date/PCP Admission Date/Primary Care Provider: 06/19/19 09:55 JOHN GROVES MD Discharge Date: 06/21/19 - PP Day #2, doing well, bottle feeding, O+, Rubella non-immune - Additional Information Resuscitation Status: Full Code Discharge Diet: As Tolerated, Regular Discharge Activity: Activity As Tolerated, No Lifting Over 10 Pounds, Pelvic Rest Referrals: JOHN GROVES MD [Primary Care Provider] - Prescriptions: Ibuprofen [Motrin 800 mg Tablet] 800 mg PO Q8 #60 tablet Home Medications: Pnv No.103/Folic/Om3s/Fish Oil [ Gummies] 1 each PO DAILY 03/04/17 Ibuprofen [Motrin 800 mg Tablet] 800 mg PO Q8 #60 tablet 06/21/19 HPI Reason(s) for Admission: Induction of Labor Procedures: NST, Ultrasound Intrapartum Procedure(s): Spontaneous Vaginal Delivery Hospital Course Hospital Course: normal Results Laboratory Results: WBC 8.8 10^3/uL (4.0-10.5) 06/20/19 07:24 RBC 3.82 10^6/uL (3.72-5.28) 06/20/19 07:24 Hgb 10.7 g/dL (12.0-15.5) L 06/20/19 07:24 Hct 32.0 % (36.0-47.0) L 06/20/19 07:24 MCV 84 fl (80-97) 06/20/19 07:24 MCH 28.0 pg (27.0-33.4) 06/20/19 07:24 MCHC 33.4 g/dL (32.0-36.0) 06/20/19 07:24 RDW 16.1 % (11.5-14.0) H 06/20/19 07:24 Plt Count 195 10^3/uL (150-450) 06/20/19 07:24 Lymph % (Auto) 23.7 % (13-45) 06/19/19 12:37 Slope % (Auto) 9.7 % (3-13) 06/19/19 12:37 Eos % (Auto) 0.3 % (0-6) 06/19/19 12:37 Baso % (Auto) 0.2 % (0-2) 06/19/19 12:37 Absolute Neuts (auto) 4.3 10^3/uL (1.7-8.2) 06/19/19 12:37 Absolute Lymphs (auto) 1.5 10^3/uL (0.5-4.7) 06/19/19 12:37 Absolute Monos (auto) 0.6 10^3/uL (0.1-1.4) 06/19/19 12:37 Absolute Eos (auto) 0.0 10^3/uL (0.0-0.6) 06/19/19 12:37 Absolute Basos (auto) 0.0 10^3/uL (0.0-0.2) 06/19/19 12:37 Seg Neutrophils % 66.1 % (42-78) 06/19/19 12:37 Urine Opiates Screen NEGATIVE 06/19/19 10:07 Urine Methadone Screen NEGATIVE 06/19/19 10:07 Ur Barbiturates Screen NEGATIVE 06/19/19 10:07 Ur Phencyclidine Scrn NEGATIVE 06/19/19 10:07 Ur Amphetamines Screen NEGATIVE 06/19/19 10:07 U Benzodiazepines Scrn NEGATIVE 06/19/19 10:07 Urine Cocaine Screen NEGATIVE 06/19/19 10:07 U Marijuana (THC) Screen NEGATIVE 06/19/19 10:07 RPR NONREACTIVE (NONREACTIVE) 06/19/19 12:37 Blood Type O POSITIVE 06/19/19 12:37 Antibody Screen NEGATIVE 06/19/19 12:37 Plan Health Concerns: none Plan of Treatment: d/c to home, f/u with [facility] in 4 wks for PP check Time Spent: Less than 30 Minutes
[2019-06-21] MEDS: FAMOTIDINE 20 MG TABLET PO SCH (10:06)
[2019-06-21] MEDS: DOCUSATE SODIUM 100 MG CAPSULE PO SCH (10:06)
[2019-06-21] MEDS: FERROUS SULFATE 325 MG TABLET PO SCH (10:06)
[2019-06-21] MEDS: PRENATAL VITAMIN W DHA CAPSULE PO SCH (10:06)
[2019-06-21] MEDS: SENNOSIDES/DOCUSATE 8.6-50 MG 1 EACH TABLET PO SCH (10:07)
[2019-06-21 12:12] VITALS: BP 110/64
--- NOTE | 2019-06-22 12:25 | Delivery Summary ---
Del Sum A-C Datetime Report Generated by CPN: 06/22/2019 12:25 DELIVERY PERSONNEL DELIVERY PERSONNEL: [id number] Nurse Rod Cup Filler Certified:: Alethea Shea CNM Labor and Delivery Nurse:: Robyn Peralta RNchief engineer research Nurse:: Casi Beth RN Student Observers:: Maty Conway RN Key Ringer/TURFGRASS TECHNICIAN: Eli Huber, ST MATERNAL INFORMATION Delivery Anesthesia: Epidural Medications After Delivery: Pitocin Bolus-Please Comment; Pitocin Drip 20 Units/1000ml NSS Meds After Delivery Comment: Pitocin 20 units in 1 L NS bolusing per order Maternal Complications: Precipitous Labor (<3hrs) Provider Comments: ciable male from OA to SUELLEN to MAGEN over intact perineum, cord clamped and cut, mother did not want baby on her chest or abd, spont delivery of grossly nl intact placenta, 3 VS, several superficial lacerations, no suturing required, FFFM, Pitocin infusing, Baby and mom in recovery in stable condition LABOR SUMMARY EDC: 06/13/2019 00:00 No. Babies in Womb: 1 Attempted: No Labor Anesthesia: Epidural LABOR INFORMATION Reason for Induction: Post Dates Oxytocin: N/A Group B Beta Strep: negative Antibiotics # of Doses: n/a Antibiotics Time of Last Dose: n/a Name of Antibiotic Given: n/a Steroids Given: None Reason Steroids Not Administered: Not Applicable MEMBRANES Membranes Rupture Method: Artificial Rupture of Membranes: 06/19/2019 11:00 Length of Rupture (hr): 0.88 Amniotic Fluid Color: Clear Amniotic Fluid Amount: Small Amniotic Fluid Odor: Normal STAGES OF LABOR Stage 3 hr: 0 Stage 3 min: 4 VAGINAL DELIVERY Episiotomy: None Laceration #1: None Laceration Extension #1: N/A Laceration Repair: Not Applicable BABY A INFORMATION Infant Delivery Date/Time: 06/19/2019 11:53 Method of Delivery: Vaginal Born in Route : No : N/A Forceps: N/A Vacuum Extraction: N/A Shoulder Dystocia : No PRESENTATION/POSITION BABY A Presentation: Cephalic Cephalic Presentation: Vertex Vertex Position: Left Occipital Anterior PLACENTA INFORMATION BABY A Placenta Delivery Time : 06/19/2019 11:57 Placenta Method of Delivery: Spontaneous Placenta Status: Delivered SCORES BABY A Heart Rate 1 min: >100 bpm Resp Effort 1 min: Good Cry Reflex Irritability 1 min: Cough or Sneeze or Pulls Away Muscle Tone 1 min: Active Motion Color 1 min: Body Carroll, Extremities Blue Resuscitation Effort 1 min: Tactile Stimulation SCORE 1 MIN: 9 Heart Rate 5 min: >100 bpm Resp Effort 5 min: Good Cry Reflex Irritability 5 min: Cough or Sneeze or Pulls Away Muscle Tone 5 min: Active Motion Color 5 min: Completely Carroll Resuscitation Effort 5 min: Tactile Stimulation SCORE 5 MIN: 10 INFANT INFORMATION BABY A Gestational Age at Delivery: 40.6 Gestational Status: Full Term- 39- 40.6 Weeks Infant Outcome : Liveborn Infant Condition : Stable Sex: Male IDENTIFICATION BABY A Verification Date/Time: 06/19/2019 12:22 ID Band Number: [id number] Mother's Name Verified: Yes RN Verifying : B Carlos RN CORD INFORMATION BABY A No. Cord Vessels: 3 Nuchal Cord : Around Neck x1, Loose Infant Suction: None ASSESSMENT BABY A Infant Complications: None Physical Findings at Delivery: Within Normal Limits Infant Respirations: Appears Normal Skin to Skin: No Manager Statistical/ALS Called : No Infant Care By: Robyn Kathryn Transferred To: Remains with Mother
== END 2019-06-21 13:21 | disposition home or self-care (01) | DRG 807 ==
LOC: LR 09:55 → 2S 15:40
PROVIDERS: ADMIT Student in an Organized Health Care Education/Training Program; ATTEND Student in an Organized Health Care Education/Training Program
PROC: 10E0XZZ Delivery of Products of Conception, External Approach (ICD-10-PCS; principal; 2019-06-19)
DX: O48.0 Post-term pregnancy (principal); Z37.0 Single live birth; O62.3 Precipitate labor; O69.81X0 Labor and delivery complicated by cord around neck, without compression, not applicable or unspecified; Z3A.40 40 weeks gestation of pregnancy
CPT/HCPCS: 36415; 80307; 85025; 85027; 86592; 86850; 86900; 86901; J2590; J3490